=== PATIENT | female | born 1955 | race Caucasian/White ===

== ENCOUNTER → 2016-08-12 | Outpatient (CLI) | payer MEDICAID ==
[~2016-08-12] MED LIST: CHANTIX1 MG PO; CLONAZEPAM1 MG PO; NEURONTIN300 MG PO; PREDNISONE10 MG PO; PROVENTIL HFA6.7 GM INH; SYMBICORT 160-4.6 GM INH; VITAMIN D31000 UNI1 PO
== END | disposition short-term general hospital (02) ==
LOC: CLPAIN 09:33
DX: M46.1 Sacroiliitis, not elsewhere classified (principal); G62.9 Polyneuropathy, unspecified; M79.604 Pain in right leg; M79.605 Pain in left leg

== ENCOUNTER → 2016-09-09 | Outpatient (CLI) | payer MEDICAID | END | disposition short-term general hospital (02) | LOC: CLPAIN 11:50 | DX: M46.1 Sacroiliitis, not elsewhere classified (principal); M79.604 Pain in right leg; M79.605 Pain in left leg; G62.9 Polyneuropathy, unspecified ==

== ENCOUNTER → 2016-09-23 | Outpatient (CLI) | payer MEDICAID | END | disposition short-term general hospital (02) | LOC: CLPAIN 10:05 | DX: M46.1 Sacroiliitis, not elsewhere classified (principal); G62.9 Polyneuropathy, unspecified; G89.4 Chronic pain syndrome ==